=== PATIENT | male | born 1995 ===

== ENCOUNTER → 2019-07-25 | Outpatient (CLI) | payer BC ==
[2019-07-25 18:50] LABS: HIV-1p24 Antigen Non-Reactive
[2019-07-25 18:51] LABS: HIV 1/2 Antibodies Non-Reactive
[2019-07-26 18:40] LABS: HEPATITIS B SURFACE ANTIGEN Negative (Negative); HEPATITIS C VIRUS ANTIBODY Negative (Negative)
[2019-07-27 04:31] LABS: RPR (VDRL) XXX
== END ==
LOC: ZCOL.LAB 16:59
PROVIDERS: Family Medicine
DX: Z11.3 Encounter for screening for infections with a predominantly sexual mode of transmission (principal)